=== PATIENT | female | born 1985 | race African-American/Black ===

== ENCOUNTER 2017-01-18 18:04 | Emergency (ER) | payer BC ==
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
== END 2017-01-18 18:43 | disposition home or self-care (01) ==
LOC: MW.ED 18:04
DX: O99.89 Other specified diseases and conditions complicating pregnancy, childbirth and the puerperium (principal); R07.81 Pleurodynia; Z88.5 Allergy status to narcotic agent; Z3A.29 29 weeks gestation of pregnancy; V47.6XXA Car passenger injured in collision with fixed or stationary object in traffic accident, initial encounter
CPT/HCPCS: 99282; 99283

== ENCOUNTER 2017-03-27 20:37 | Inpatient (IN) | payer BC ==
[2017-03-27] MEDS ORDERED: Sodium Chloride 0.9% 10 ML Syringe FLUSH PRN (21:23)
[2017-03-27] MEDS ORDERED: Methylergonovine 0.2 MG/1 ML Amp IM PRN (21:23)
[2017-03-27] MEDS ORDERED: Lidocaine 1% 50 ML MDV INJECT PRN (21:23)
[2017-03-27] MEDS ORDERED: Misoprostol 200 MCG Tab PO PRN (21:23)
[2017-03-27] MEDS ORDERED: Butorphanol 1 MG/ML SDV IVPUSH PRN (21:23)
[2017-03-27] MEDS ORDERED: Water For Irrigation,Sterile 1,000 ML Container IRR PRN (21:23)
[2017-03-27] MEDS ORDERED: Sodium Chloride 0.9% 2.5 ML Syringe FLUSH PRN (21:23)
[2017-03-27] MEDS ORDERED: Carboprost Tromethamine 250 MCG/1 ML Amp IM PRN (21:23)
[2017-03-27] MEDS ORDERED: Oxytocin/0.9 % Sodium Chloride 30 UNIT/500 ML BAG IV SCH (21:30)
[2017-03-27] MEDS: Lactated Ringers 1,000 ML IV SCH (21:51)
--- NOTE | 2017-03-27 22:45 | PCM.LDHP ---
L&D History of Present Illness - General Date of Service: 03/27/17 Admit Problem/Dx: Patient Status Order with Admit Dx/Problem 03/27/17 20:42 Patient Status [ADT] Routine 03/27/17 21:24 Patient Status [ADT] Routine Admission Diagnosis/Problem Admission Diagnosis/Problem Source of Information: Patient History Limitations: Reports: No Limitations - History of Present Illness Improves with: Reports: None Worsens with: Reports: None Associated Symptoms: Reports: N - Related Data Allergies/Adverse Reactions: Allergies Allergy/AdvReac Type Severity Reaction Status Date / Time naproxen Allergy Swelling Verified 01/18/17 18:09 Home Medications: Home Meds . 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 & Family History - Family History Family Medical History: Noncontributory - Tobacco Use Smoking Status *Q: Never Smoker Second Hand Smoke Exposure: No - Caffeine Use Caffeine Use: Reports: Coffee - Recreational Drug Use Recreational Drug Use: No H&P Review of Systems - Review of Systems: Review Of Systems: See Below General: Reports: No Symptoms HEENT: Reports: No Symptoms Pulmonary: Reports: No Symptoms Cardiovascular: Reports: No Symptoms Gastrointestinal: Reports: No Symptoms Genitourinary: Reports: No Symptoms Musculoskeletal: Reports: No Symptoms Skin: Reports: No Symptoms Psychiatric: Reports: No Symptoms Neurological: Reports: No Symptoms Hematologic/Lymphatic: Reports: No Symptoms Immunologic: Reports: No Symptoms L&D Exam - Exam Exam: See Below - Vital Signs Weight: 90.265 kg - OB Specific Fundal Height In cm: 39 Contraction Intensity: Moderate Movement: Active Heart Tones: Present Presentation: Vertex - Hugo Score Hugo Score Cervix Position: Anterior Hugo Score Consistency: Soft Hugo Score Effacement: >80% Hugo Score Dilation: 3-4 cm Hugo Score Infant's Station: -1 ,0 Huog Score Total: 11 - Exam General: Alert, Oriented HEENT: PERRLA, Conjunctiva Clear, EACs Clear, EOMI, Hearing Intact, Mucosa Moist & Donahue, Nares Patent, Normal Nasal Septum, Posterior Pharynx Clear, TMs Clear Neck: Supple, Trachea Midline Lungs: Clear to Auscultation, Normal Respiratory Effort Cardiovascular: Regular Rate, Regular Rhythm GI/Abdominal Exam: Normal Bowel Sounds, Soft, Non-Tender, No Organomegaly, No Distention, No Abnormal Bruit, No Mass, Pelvis Stable Rectal Exam: Normal Exam, Normal Rectal Tone Genitourinary: Normal external exam, Normal bimanual exam, Normal speculum exam Back Exam: Normal Inspection, Full Range of Motion Extremities: Normal Inspection, Normal Range of Motion, Non-Tender, No Pedal Edema, Normal Capillary Refill Skin: Warm, Dry, Intact Neurological: Cranial Nerves Intact, Reflexes Equal Bilateral Psychiatric: Alert, Normal Affect, Normal Mood - Patient Data Lab Results Last 24 hrs: Laboratory Results - last 24 hr 03/27/17 03/27/17 03/27/17 Range/Units 20:55 21:43 21:43 WBC 11.65 H (4.0-11.0) K/uL RBC 5.55 (4.30-5.90) M/uL Hgb 13.1 (12.0-16.0) g/dL Hct 39.9 (36.0-46.0) % MCV 71.9 L (80.0-98.0) fL MCH 23.6 L (27.0-32.0) pg MCHC 32.8 (31.0-37.0) g/dL RDW Std Deviation 39.4 (28.0-62.0) fl RDW Coeff of Roberto Carlos 15 (11.0-15.0) % Plt Count 219 (150-400) K/uL MPV 11.60 (7.40-12.00) fL Nucleated RBC % 0.0 /100WBC Nucleated RBCs # 0 K/uL Membrane Rupture POSITIVE Blood Type AB POSITIVE Antibody Screen NEGATIVE Result Diagrams: 03/27/17 21:43 Problem List Initiated/Reviewed/Updated: Yes Orders Last 24hrs: Active Orders 24 hr Category Date Time Status Patient Status [ADT] Routine ADT 03/27/17 20:42 Active Patient Status [ADT] Routine ADT 03/27/17 21:24 Active Heart Tones [RC] CONTINUOUS Care 03/27/17 21:24 Active Non Stress Test [RC] PER UNIT ROUTINE Care 03/27/17 20:42 Active May Shower [RC] ASDIRECTED Care 03/27/17 21:24 Active Notify Provider [RC] PRN Care 03/27/17 21:24 Active Up ad Shanta [RC] ASDIRECTED Care 03/27/17 21:24 Active Vaginal Exam [RC] Click to Edit Care 03/27/17 20:42 Active Vaginal Exam [RC] PRN Care 03/27/17 21:24 Active Vital Signs [RC] PER UNIT ROUTINE Care 03/27/17 20:42 Active Vital Signs [RC] PER UNIT ROUTINE Care 03/27/17 21:24 Active Butorphanol [Stadol] Med 03/27/17 21:23 Active 1 mg IVPUSH ASDIRECTED PRN Carboprost Tromethamine [Hemabate DS] Med 03/27/17 21:23 Active 250 mcg IM ASDIRECTED PRN Lactated Ringers [Ringers, Lactated] 1,000 ml Med 03/27/17 21:30 Active IV ASDIRECTED Lidocaine 1% [Xylocaine 1%] Med 03/27/17 21:23 Active 50 ml INJECT .ONCE PRN Methylergonovine [Methergine] Med 03/27/17 21:23 Active 0.2 mg IM ASDIRECTED PRN Misoprostol [Cytotec] Med 03/27/17 21:23 Active 200 mcg PO .ONCE PRN Nalbuphine [Nubain] Med 03/27/17 21:23 Active 10 mg IVPUSH ASDIRECTED PRN Oxytocin/0.9 % Sodium Chloride [Oxytocin 30 Unit/500 ML Med 03/27/17 21:30 Active -NS] 30 unit in 500 ml IV ASDIRECTED Sodium Chloride 0.9% [Saline Flush] Med 03/27/17 21:23 Active 10 ml FLUSH ASDIRECTED PRN Sodium Chloride 0.9% [Saline Flush] Med 03/27/17 21:23 Active 2.5 ml FLUSH ASDIRECTED PRN Water For Irrigation,Sterile [Sterile Water for Med 03/27/17 21:23 Active Irrigation] 1,000 ml IRR ASDIRECTED PRN Scalp Electrode [WOMSER] Per Unit Routine Oth 03/27/17 21:24 Ordered Peripheral IV Insertion Adult [OM.PC] Routine Oth 03/27/17 21:24 Ordered Resuscitation Status Routine Resus Stat 03/27/17 21:23 Ordered Medication Orders Butorphanol Tartrate (Stadol) 1 mg IVPUSH ASDIRECTED PRN PRN Reason: Pain Carboprost Tromethamine (Hemabate Ds) 250 mcg IM ASDIRECTED PRN PRN Reason: Post Hemorrhage Lactated Ringer's (Ringers, Lactated) 1,000 mls @ 150 mls/hr IV ASDIRECTED [facility] Last Admin: 03/27/17 21:51 Dose: 150 mls/hr Oxytocin/Sodium Chloride (Oxytocin 30 Unit/500 Ml-Ns) 30 unit in 500 mls @ 999 mls/hr IV ASDIRECTED [facility] Lidocaine HCl (Xylocaine 1%) 50 ml INJECT .ONCE PRN PRN Reason: Laceration repair Methylergonovine Maleate (Methergine) 0.2 mg IM ASDIRECTED PRN PRN Reason: Post Hemorrhage Misoprostol (Cytotec) 200 mcg PO .ONCE PRN PRN Reason: Post Hemorrhage Nalbuphine HCl (Nubain) 10 mg IVPUSH ASDIRECTED PRN PRN Reason: Pain (severe 7-10) Sodium Chloride (Saline Flush) 10 ml FLUSH ASDIRECTED PRN PRN Reason: Keep Vein Open Sodium Chloride (Saline Flush) 2.5 ml FLUSH ASDIRECTED PRN PRN Reason: Keep Vein Open Sterile Water (Sterile Water For Irrigation) 1,000 ml IRR ASDIRECTED PRN PRN Reason: delivery Assessment/Plan Comment:: Term 39+3 in active labor. Cx.3-4/90/v/-3. she can have epidural if she need it.
[2017-03-27] MEDS: Nalbuphine 10 MG/1 ML Vial IVPUSH PRN (22:55)
[2017-03-28] MEDS: Nalbuphine 10 MG/1 ML Vial IVPUSH PRN (01:11)
[2017-03-28] MEDS: Lactated Ringers 1,000 ML IV SCH ×3 (03:16→07:30)
--- NOTE | 2017-03-28 03:40 | PCM.PREANE ---
Preanesthetic Assessment - Anesthesia/Transfusion/Family Hx Anesthesia History: No Prior Anesthesia Transfusion History: No Prior Transfusion(s) - Review of Systems General: No Symptoms Pulmonary: No Symptoms Cardiovascular: No Symptoms Gastrointestinal: No Symptoms Neurological: No Symptoms Other: Reports: None - Physical Assessment NPO Status Date: 03/28/17 NPO Status Time: 03:39 (sips/chips) Height: 5 ft 5 in Weight: 199 lb ASA Class: 2 Mental Status: Alert & Oriented x3 Airway Class: Mallampati = 2 Dentition: Reports: Normal Dentition Thyro-Mental Finger Breadths: 3 Mouth Opening Finger Breadths: 3 ROM/Head Extension: Full Lungs: Clear to Auscultation, Normal Respiratory Effort - Lab Values: Laboratory Last Values WBC 11.65 K/uL (4.0-11.0) H 03/27/17 21:43 RBC 5.55 M/uL (4.30-5.90) 03/27/17 21:43 Hgb 13.1 g/dL (12.0-16.0) 03/27/17 21:43 Hct 39.9 % (36.0-46.0) 03/27/17 21:43 MCV 71.9 fL (80.0-98.0) L 03/27/17 21:43 MCH 23.6 pg (27.0-32.0) L 03/27/17 21:43 MCHC 32.8 g/dL (31.0-37.0) 03/27/17 21:43 RDW Std Deviation 39.4 fl (28.0-62.0) 03/27/17 21:43 RDW Coeff of Roberto Carlos 15 % (11.0-15.0) 03/27/17 21:43 Plt Count 219 K/uL (150-400) 03/27/17 21:43 MPV 11.60 fL (7.40-12.00) 03/27/17 21:43 Nucleated RBC % 0.0 /100WBC 03/27/17 21:43 Nucleated RBCs # 0 K/uL 03/27/17 21:43 Membrane Rupture POSITIVE 03/27/17 20:55 Blood Type AB POSITIVE 03/27/17 21:43 Antibody Screen NEGATIVE 03/27/17 21:43 - Allergies Allergies/Adverse Reactions: Allergies Allergy/AdvReac Type Severity Reaction Status Date / Time naproxen Allergy Swelling Verified 01/18/17 18:09 - Blood Blood Available: No Product(s) Available: None - Anesthesia Plan Free Text/Narrative:: Labor Epidural - Acknowledgements Anesthesia Type Planned: Epidural Pt an Appropriate Candidate for the Planned Anesthesia: Yes Alternatives and Risks of Anesthesia Discussed w Pt/Guardian: Yes Pt/Guardian Understands and Agrees with Anesthesia Plan: Yes PreAnesthesia Questionnaire - Past Health History Medical/Surgical History: Denies 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 [No Known Home Meds] 01/18/17 [History] - CURRENT (IN HOUSE) MEDS Current Meds: Current Medications Butorphanol Tartrate (Stadol) 1 mg IVPUSH ASDIRECTED PRN PRN Reason: Pain Carboprost Tromethamine (Hemabate Ds) 250 mcg IM ASDIRECTED PRN PRN Reason: Post Hemorrhage Lactated Ringer's (Ringers, Lactated) 1,000 mls @ 150 mls/hr IV ASDIRECTED [facility] Last Admin: 03/28/17 03:16 Dose: 150 mls/hr Oxytocin/Sodium Chloride (Oxytocin 30 Unit/500 Ml-Ns) 30 unit in 500 mls @ 999 mls/hr IV ASDIRECTED [facility] Lidocaine HCl (Xylocaine 1%) 50 ml INJECT .ONCE PRN PRN Reason: Laceration repair Methylergonovine Maleate (Methergine) 0.2 mg IM ASDIRECTED PRN PRN Reason: Post Hemorrhage Misoprostol (Cytotec) 200 mcg PO .ONCE PRN PRN Reason: Post Hemorrhage Nalbuphine HCl (Nubain) 10 mg IVPUSH ASDIRECTED PRN PRN Reason: Pain (severe 7-10) Last Admin: 03/28/17 01:11 Dose: 10 mg Sodium Chloride (Saline Flush) 10 ml FLUSH ASDIRECTED PRN PRN Reason: Keep Vein Open Sodium Chloride (Saline Flush) 2.5 ml FLUSH ASDIRECTED PRN PRN Reason: Keep Vein Open Sterile Water (Sterile Water For Irrigation) 1,000 ml IRR ASDIRECTED PRN PRN Reason: delivery
[2017-03-28] MEDS ORDERED: Lanolin 100% Cream 7 GM Tube TOP PRN (10:13)
[2017-03-28] MEDS ORDERED: Docusate Sodium 100 MG Cap PO PRN (10:13)
[2017-03-28] MEDS ORDERED: oxyCODONE 5 MG Tab PO PRN (10:13)
[2017-03-28] MEDS ORDERED: Witch Hazel Medicated Pads 40/Jar TOP PRN (10:13)
[2017-03-28] MEDS ORDERED: Bisacodyl 10 MG Supp RECTAL PRN (10:13)
[2017-03-28] MEDS ORDERED: Benzocaine/Menthol 20%-0.5% Spray 78 GM Cannister TOP PRN (10:13)
[2017-03-28] MEDS ORDERED: Acetaminophen 500 MG Tab PO PRN ×2 (10:13)
[2017-03-28] MEDS ORDERED: Ibuprofen 400 MG Tab PO PRN (10:13)
--- NOTE | 2017-03-28 13:33 | OR ---
SURGEON: Cheikh De La Vega MD DATE OF PROCEDURE: Ms. Hilario is a 31-year-old primigravida. She is followed in our clinic primarily by me. She has no complication, and no risk. Her GBS status was negative. Her diabetes screen negative. Her blood work prenatally was normal. She was admitted last evening of March 27 with spontaneous labor and spontaneous rupture of membrane. At the time of admission, she was 4 cm dilated, 90 vertex, and heart rate was essentially within normal limits. The patient is progressed adequately on her own. She has an epidural anesthesia for labor analgesia. The patient progressed to complete, complete, +2 to +3 and she started having variable, with late component, decelerations and slow recovery. I have been called to evaluate the patient. Examination revealed that the patient is a +2 to +3 with adequate pelvis in OP position. Because of the patient is having variable deceleration, decision was made to do a vacuum extraction. I explained to the patient and after obtaining consent, kiwi vacuum extraction was performed with the aid of the patient pushing with 2 contractions. I was able to deliver the fetus in an OP position without any problem. heart rate at the time of delivery about 100 and the fetus is required some resuscitation and then oxygen to breathe. score and the weight are not available at this time. The placenta delivered spontaneous, complete, and intact. There was no perineal or labial laceration. Estimated blood loss in this is 250 to 300 mL. SEBASTIÁN / RAFAT /[id number]
[2017-03-28] MEDS: Ibuprofen 800 MG Tab PO PRN (17:08)
--- NOTE | 2017-03-29 07:51 | PCM.DCSUM1 ---
Discharge Summary - Hospital Course Free Text/Narrative:: Discharge home with . Follow up in 6 weeks for post or sooner if needed. - Discharge Data Discharge Date: 03/29/17 Discharge Disposition: Home, Self-Care 01 Condition: Good - Patient Instructions Diet: Usual Diet as Tolerated Activity: As Tolerated, No Strenuous Activities, Rest and Relax Today Driving: May Drive Today Showering/Bathing: May Shower Notify Provider of: Fever, Increased Pain, Swelling and Redness, Nausea and/or Vomiting Other/Special Instructions: Discharge home with . Follow up in 6 weeks for post or sooner if needed. - Discharge Plan Home Medications: Home Meds . [No Known Home Meds] 01/18/17 [History] Referrals: [facility] [Outside] Katerina Walsh CNM [Mid-] - 05/09/17 10:30 am - General Info Date of Service: 03/29/17 Admission Dx/Problem (Free Text: Patient Status Order with Admit Dx/Problem 03/27/17 20:42 Patient Status [ADT] Routine 03/27/17 21:24 Patient Status [ADT] Routine Admission Diagnosis/Problem Admission Diagnosis/Problem Functional Status: Reports: Pain Controlled, Tolerating Diet, Ambulating, Urinating - Review of Systems General: Reports: No Symptoms HEENT: Reports: No Symptoms Pulmonary: Reports: No Symptoms Cardiovascular: Reports: No Symptoms Gastrointestinal: Reports: No Symptoms Genitourinary: Reports: No Symptoms Musculoskeletal: Reports: No Symptoms Skin: Reports: No Symptoms Neurological: Reports: No Symptoms Psychiatric: Reports: No Symptoms - Patient Data Vitals - Most Recent: Last Vital Signs Temp 36.6 C 03/29/17 04:54 Pulse 98 03/29/17 04:54 Resp 14 03/29/17 04:54 BP 138/63 03/29/17 04:54 Pulse Ox 97 03/28/17 19:53 Weight - Most Recent: 90.265 kg Lab Results - Last 24 hrs: Laboratory Results - last 24 hr 03/29/17 Range/Units 05:20 Hgb 11.2 L (12.0-16.0) g/dL Hct 34.1 L (36.0-46.0) % Med Orders - Current: Current Medications Acetaminophen (Tylenol Extra Strength) 500 mg PO Q4H PRN PRN Reason: Pain Acetaminophen (Tylenol Extra Strength) 1,000 mg PO Q4H PRN PRN Reason: Pain Benzocaine/Menthol (Dermoplast Pain Relief 20%-0.5% [place]) 78 gm TOP ASDIRECTED PRN PRN Reason: Perineal Comfort Measure Bisacodyl (Dulcolax) 10 mg RECTAL .ONCE PRN PRN Reason: Constipation Butorphanol Tartrate (Stadol) 1 mg IVPUSH ASDIRECTED PRN PRN Reason: Pain Carboprost Tromethamine (Hemabate Ds) 250 mcg IM ASDIRECTED PRN PRN Reason: Post Hemorrhage Docusate Sodium (Colace) 100 mg PO BID PRN PRN Reason: Constipation Emollient Ointment (Lansinoh Hpa) 0 gm TOP ASDIRECTED PRN PRN Reason: Sore Nipples Last Admin: 03/28/17 17:07 Dose: 1 applic Lactated Ringer's (Ringers, Lactated) 1,000 mls @ 150 mls/hr IV ASDIRECTED [facility] Last Admin: 03/28/17 07:30 Dose: 150 mls/hr Oxytocin/Sodium Chloride (Oxytocin 30 Unit/500 Ml-Ns) 30 unit in 500 mls @ 999 mls/hr IV ASDIRECTED [facility] Last Admin: 03/28/17 10:00 Dose: 999 mls/hr Ibuprofen (Motrin) 400 mg PO Q4H PRN PRN Reason: Pain Ibuprofen (Motrin) 800 mg PO Q6H PRN PRN Reason: Pain Last Admin: 03/28/17 17:08 Dose: 800 mg Lidocaine HCl (Xylocaine 1%) 50 ml INJECT .ONCE PRN PRN Reason: Laceration repair Methylergonovine Maleate (Methergine) 0.2 mg IM ASDIRECTED PRN PRN Reason: Post Hemorrhage Misoprostol (Cytotec) 200 mcg PO .ONCE PRN PRN Reason: Post Hemorrhage Nalbuphine HCl (Nubain) 10 mg IVPUSH ASDIRECTED PRN PRN Reason: Pain (severe 7-10) Last Admin: 03/28/17 01:11 Dose: 10 mg Oxycodone HCl (Oxycodone) 5 mg PO Q2H PRN PRN Reason: Pain Sodium Chloride (Saline Flush) 10 ml FLUSH ASDIRECTED PRN PRN Reason: Keep Vein Open Sodium Chloride (Saline Flush) 2.5 ml FLUSH ASDIRECTED PRN PRN Reason: Keep Vein Open Sterile Water (Sterile Water For Irrigation) 1,000 ml IRR ASDIRECTED PRN PRN Reason: delivery Diego Hernandez (Tucks) 1 pad TOP ASDIRECTED PRN PRN Reason: comfort care - Exam General: Reports: Alert, Oriented, Cooperative, No Acute Distress Lungs: Reports: Clear to Auscultation, Normal Respiratory Effort Cardiovascular: Reports: Regular Rate, Regular Rhythm, No Murmurs GI/Abdominal Exam: Soft, Non-Tender (Female) Exam: Vaginal Bleeding Rectal (Female) Exam: Deferred Back Exam: Reports: Full Range of Motion Extremities: Normal Range of Motion, Non-Tender, No Pedal Edema, Normal Capillary Refill Skin: Reports: Warm, Dry, Intact Wound/Incisions: Reports: Healing Well Neurological: Reports: No New Focal Deficit, Normal Speech, Normal Tone Psy/Mental Status: Reports: Alert, Normal Affect, Normal Mood *Q Meaningful Use (DIS) - VTE *Q VTE Criteria *Q: - Stroke *Q Stroke Criteria *Q: - AMI *Q AMI Criteria *Q:
[2017-03-29] MEDS: Ibuprofen 800 MG Tab PO PRN (12:18)
== END 2017-03-29 15:45 | disposition home or self-care (01) | DRG 560 ==
LOC: MW.OBCHECK 20:37 → MW.OB 20:41 → MW.OBCHECK 21:24 → MW.OB 21:24 → OBSVTOIN 03-28 10:03
PROVIDERS: ADMIT Obstetrics & Gynecology; ATTEND Obstetrics & Gynecology
PROC: 10D07Z6 Extraction of Products of Conception, Vacuum, Via Natural or Artificial Opening (ICD-10-PCS; principal; 2017-03-28)
DX: O42.02 Full-term premature rupture of membranes, onset of labor within 24 hours of rupture (principal); Z3A.39 39 weeks gestation of pregnancy; Z37.0 Single live birth
CPT/HCPCS: 01967; 36415; 51702; 59025; 59409; 84112; 85014; 85018; 85027; 86850; 86900; 86901; A9270-GY; J2300; J2590; J7120

== ENCOUNTER 2023-06-29 21:43 | Emergency (ER) | payer OTHER ==
[2023-06-29 22:22] LABS: BASOPHILS ABSOLUTE AUTO 0.04 K/uL (0.00-0.20); BASOPHILS PERCENT AUTO 0.4 % (0.0-1.0); EOSINOPHILS ABSOLUTE AUTO 0.28 K/uL (0.00-0.45); EOSINOPHILS PERCENT AUTO 2.7 % (0.0-6.0); HEMATOCRIT 38.9 % (37.0-47.0); HEMOGLOBIN 12.3 g/dL (12.0-16.0); IMMATURE GRAN ABSOLUTE AUTO 0.03 K/uL (0.00-0.05); IMMATURE GRAN PERCENT AUTO 0.3 % (0.0-0.4); LYMPHOCYTES ABSOLUTE AUTO 2.64 K/uL (1.00-4.80); LYMPHOCYTES PERCENT AUTO 25.3 % (24.0-44.0); MEAN CORPUSCULAR HEMOGLOBIN 23.1 pg (28.0-32.0); MEAN CORPUSCULAR HGB CONC 31.6 g/dL (32.0-36.0); MEAN PLATELET VOLUME 11.5 fL (9.4-12.3); MONOCYTES ABSOLUTE AUTO 0.87 K/uL (0.00-0.80); MONOCYTES PERCENT AUTO 8.3 % (0.0-8.0); NEUTROPHILS ABSOLUTE AUTO 6.57 K/uL (1.80-7.70); PLATELET COUNT,PLT 306 K/uL (150-400); RED BLOOD CELL COUNT 5.33 M/uL (4.10-5.30); WHITE BLOOD CELL COUNT,WBC 10.43 K/uL (3.9-11.3)
[2023-06-29 23:23] LABS: A/G RATIO 0.9 (0.9-1.6); ALBUMIN 3.7 g/dL (3.4-5.0); BILIRUBIN TOTAL 0.3 mg/dL (0.2-1.0); CALCIUM 9.1 mg/dL (8.5-10.1); CREATININE 0.9 mg/dL (0.6-1.0); EST CRCL DRUG DOSING (CG) 80.12 mL/min; POTASSIUM,K 3.8 mmol/L (3.5-5.1); PROTEIN TOTAL,TP 7.9 g/dL (6.4-8.2)
[2023-06-29 23:45] LABS: APPEARANCE,URINE CLEAR; BILIRUBIN,URINE NEGATIVE (NEGATIVE); COLOR,URINE YELLOW; GLUCOSE,URINE NEGATIVE (NEGATIVE); KETONES,URINE NEGATIVE (NEGATIVE); LEUKOCYTE ESTERASE,URINE SMALL (NEGATIVE); NITRITE,URINE NEGATIVE (NEGATIVE); OCCULT BLOOD,URINE LARGE (NEGATIVE); PROTEIN,URINE 30 mg/dL (NEGATIVE)
[2023-06-29 23:52] LABS: BACTERIA,URINE RARE (NEGATIVE); EPITHELIAL CELLS,URINE FEW (NONE-FEW); RBC,URINE TOO NUMEROUS TO CT (0-2/HPF)
== END 2023-06-30 03:42 | disposition home or self-care (01) ==
LOC: MW.ED 21:43
DX: O20.9 Hemorrhage in early pregnancy, unspecified (principal); Z3A.01 Less than 8 weeks gestation of pregnancy; Z88.8 Allergy status to other drugs, medicaments and biological substances
CPT/HCPCS: 36415; 76801; 76801-26; 80053; 81001; 81003; 84702; 85025; 86900; 86901; 87086; 99282; 99284

== ENCOUNTER 2024-02-26 13:43 | Emergency (ER) | payer BC, OTHER ==
[2024-02-26] MEDS: Acetaminophen 500 MG Tab PO ONE (15:48)
== END 2024-02-26 16:11 | disposition home or self-care (01) ==
LOC: MW.ED 13:43
DX: J10.1 Influenza due to other identified influenza virus with other respiratory manifestations (principal); E66.9 Obesity, unspecified; Z88.6 Allergy status to analgesic agent; Z75.8 Other problems related to medical facilities and other health care; Z68.35 Body mass index [BMI] 35.0-35.9, adult
CPT/HCPCS: 87428; 99283; A9270